=== PATIENT | female | born 1975 | race Asian ===

== ENCOUNTER 2020-05-16 21:48 | Emergency (ER) | payer OTHER ==
[~2020-05-16] VITALS: Ht 149.9 cm; Wt 53.1 kg
--- NOTE | 2020-05-16 21:50 | NUR ---
ED Nurse Note: Patient walked into the ED with c/o of ring stuck around index finger. Patient states she is putting the ring on and drinking water, the ring got stuck and her finger is now swollen. No loss of sensation noted.
[2020-05-16 22:00] VITALS: BP 176/99
--- NOTE | 2020-05-16 22:00 | NUR ---
ED Nurse Note: Patients right index finger soaked in iced water to numb before removing the ring
--- NOTE | 2020-05-16 22:14 | Emergency Room Report ---
History of Present Illness General Chief Complaint: Upper Extremity Injury Source: Patient Present Illness [facility] This is a 44-year-old female who is right-hand dominant. She presents with chief complaint of ring stuck on her finger. She put a ring her right index finger. This occurred about couple hours ago. It got too tight and she could not remove it. She was try to remove it now is swollen. No other injury. No fever chills but no drainage. Never happened before. No other complaint. Allergies: Coded Allergies: No Known Allergies (Unverified , 05/16/20) COVID-19 Screening Contact w/high risk pt: No Experienced COVID-19 symptoms?: No COVID-19 Testing performed [employer]: No Patient History Past Medical History: see triage record, old chart reviewed Past Surgical History: none Pertinent Family History: none Social History: Denies: smoking Last Menstrual Period: n/a Now: No Immunizations: other Reviewed Nursing Documentation: PMH: Agreed; PSxH: Agreed Nursing Documentation-PMH Past Medical History: No Stated History Review of Systems Eye: Denies: eye pain, blurred vision ENT: Denies: ear pain, nose congestion, throat swelling Respiratory: Denies: cough, shortness of breath Cardiovascular: Denies: chest pain, palpitations Gastrointestinal: Denies: abdominal pain, diarrhea, nausea, vomiting Musculoskeletal: Reports: joint swelling; Denies: back pain, joint pain Skin: Denies: rash Neurological: Denies: headache, numbness Endocrine: Denies: increased thirst, increased urine Hematologic/Lymphatic: Denies: easy bruising All Other Systems: negative except mentioned in HPI Physical Exam Vital Signs Date Time Temp Pulse Resp B/P (MAP) Pulse Ox O2 Delivery O2 Flow Rate FiO2 05/16/20 21:50 97.9 101 19 184/99 (127) 95 Room Air Vitals with high blood pressure Sp02 EP Interpretation: reviewed, normal General Appearance: well appearing, no apparent distress, alert Head: normocephalic, atraumatic Eyes: bilateral eye PERRL, bilateral eye EOMI ENT: hearing grossly normal, normal pharynx Neck: full range of motion, supple, no meningismus Respiratory: chest non-tender, lungs clear, normal breath sounds Cardiovascular #1: regular rate, rhythm, no murmur Gastrointestinal: normal bowel sounds, non tender, no mass, no organomegaly, no bruit, non-distended Musculoskeletal: back normal, normal range of motion, gait/station normal, other - Right index finger: There is a ring constricting her finger with distal edema. Sensation normal. Psychiatric: mood/affect normal Procedures Additional Procedure Procedure Narrative Procedure: Ring removal Indication: Constricting ring Description: I felt her finger in ice bath. Initially I tried to remove it with the string method. This was unsuccessful because there was too much constriction and swelling. Using a ring cutter, I cut the ring and spread it open. Was able to remove it without difficulty. Patient taught a procedure without any problem. No complication. Sensation normal afterward. Medical Decision Making Diagnostic Impression: Primary Impression: Ring or other jewelry causing external constriction, initial encounter Additional Impression: Hypertension Qualified Codes: I10 - Essential (primary) hypertension ER Course Patient presents with constriction from ring. Blood pressure elevated probably secondary to alcohol use tonight and restriction from the ring and pain. Blood pressure improved. She does have a history of hypertension. Will discharge home. Last Vital Signs Date Time Temp Pulse Resp B/P (MAP) Pulse Ox O2 Delivery O2 Flow Rate FiO2 05/16/20 21:50 97.9 101 19 184/99 (127) 95 Room Air Status: improved Disposition: HOME, SELF-CARE Condition: Stable Referrals: NOT CHOSEN IPA/,REFERRING (PCP) Additional Instructions: Follow-up with your doctor within a week for recheck on your blood pressure. Return if symptoms worsen. Carlitos Collazo MD May 16, 2020 22:14
--- NOTE | 2020-05-16 22:40 | NUR ---
ED Nurse Note: Ring at right index finger removed by ERMD. No signs of bleeding noted.
--- NOTE | 2020-05-16 22:50 | NUR ---
ED Nurse Note: BP 172/94 - ERMD notified. Anti hypertensive meds given
[2020-05-16] MEDS ORDERED: NORVASC10 MG ORAL (22:55)
[2020-05-16 23:00] VITALS: BP 177/92
--- NOTE | 2020-05-16 23:10 | NUR ---
ER DISCHARGE NOTE: Patient is cleared to be discharged per ERMD, pt is aox4, on room air, with stable vital signs. pt was given dc and prescription instructions, pt was able to verbalize understanding, pt id band removed. pt is able to ambulate with steady gait. pt took all belongings.
[2020-05-16 23:17] VITALS: BP 158/88
== END 2020-05-16 23:10 | disposition home or self-care (01) ==
LOC: EMR 22:05
DX: S60.440A External constriction of right index finger, initial encounter (principal); I10 Essential (primary) hypertension; W49.04XA Ring or other jewelry causing external constriction, initial encounter
CPT/HCPCS: 99282